=== PATIENT | female | born 1980 | race Caucasian/White ===

== ENCOUNTER 2017-05-30 22:23 | Emergency (ER) | payer MEDICAID ==
--- NOTE | 2017-05-30 22:43 | ED Physician Chart ---
Chief Complaint/HPI - Patient Information Date Seen:: 05/30/17 Time Seen:: 22:35 Chief Complaint:: Sorethroat for one day. History of Present Illness:: As above. No fever. Pt has transient N/V with vomitus consists of gastric content. No hematemesis. Last BM this morning that was normal in color/ consistency. No hematochezia or melena. No lightheadedness. No dyspnea or cough. ? voice change. Allergies:: Allergies Allergy/AdvReac Type Severity Reaction Status Date / Time No Known Allergies Allergy Verified 08/27/16 23:44 Vitals:: Vital Signs - 8 hr 05/30/17 22:35 Temp 98.6 F HR 103 RR 19 BP 143/96 O2 Sat % 95 Historian:: Patient Family MD/PCP:: Unknown LMP:: 05/23/17 Review:: Nurse's Note Reviewed Review of Systems - Review of Systems General/Constitutional: No fever, No chills, No weight loss, No weakness, No edema, No loss of appetite Skin: No skin lesions, No rash, No bruising Head: No headache, No light-headedness Eyes: No loss of vision, No pain, No diplopia ENT: No earache, No nasal drainage, Sore throat, No tinnitus Neck: No neck pain, No swelling, No thyromegaly, No stiffness, No mass noted Cardio Vascular: No chest pain, No palpitations, No edema Pulmonary: No SOB, No cough, No wheezing GI: Nausea, Vomiting (transient), No diarrhea, No pain G/U: No dysuria, No frequency, No hematuria [employer] 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 vaginal discharge, No abnormal vaginal bleed Musculoskeletal: No bone or joint pain, No back pain, No muscle pain Endocrine: No polyuria, No polydipsia Psychiatric: No prior psych history Hematopoietic: No bruising, No lymphadenopathy Allergic/Immuno: No urticaria, No angioedema Neurological: No syncope, No focal symptoms, No weakness, No headache, No dizziness, No confusion Past Medical History - Past Medical History Past Medical History: No significant medical hx Family History: None Social History: Non Smoker, Alcohol (occasional wine consumption), No Drug Use, Single, Lives With Parents, Employed Employment:: [employer] Surgical History: None Psychiatricy History: None Medication: Reviewed Family Medical History - Family Member Mother History Unknown: Yes Physical Exam - Physical Examination General/Constitutional: Awake, Well-developed, well-nourished, Alert, No distress, GCS 15, Non-toxic appearing, Ambulatory Other Gen/Cons comments:: Breathes comfortably, speaks clearly, interacts normally, and ambulates without difficulty. Head: Atraumatic Eyes: Lids, conjuctiva normal, PERRL, EOMI Skin: Nl inspection, No rash, No skin lesions, No ecchymosis, Well hydrated Other Skin comments:: Mild cervical lymphadenopathy noticed. ENMT: External ears, nose nl, TM canals nl, Nasal exam nl, Lips, teeth, gums nl Other ENMT comments:: Erythema with mild white exudate noticed in pharynx. No significant swelling noticed. Neck: Nontender, Full ROM w/o pain, No JVD, No nuchal rigidity, No mass, No stridor Respiratory: Nl effort/Exclusion, Clear to Auscultation, No Wheeze/Rhonchi/Rales Cardio Vascular: RRR (HR 90), No murmur, gallop, rubs GI: No tenderness/rebounding/guarding, No organomegaly, Normal BS's, Nondistended Extremities: No edema Neuro/Psych: Alert/oriented (oriented x 3), Judgement/insight normal, Mood normal, Normal gait, No focal deficits Labs/Radiology/EKG Results - Lab Results Results: Laboratory Tests 05/30/17 05/30/17 05/30/17 23:10 23:10 23:10 WBC 11.6 H RBC 4.20 Hgb 14.0 Hct 40.8 MCV 97.3 MCH 33.4 H MCHC Differential 34.4 RDW 14.0 Plt Count 248 MPV 7.5 Neutrophils % 80.7 H Lymphocytes % 14.3 L Monocytes % 4.7 Eosinophils % 0.3 Basophils % 0.0 PT 11.1 INR 1.07 PTT (Actin FS) 26.7 Sodium 132 L Potassium 3.5 Chloride 99 Carbon Dioxide 22.2 Anion Gap 14.3 BUN 11 Creatinine 0.7 Est GFR ( Amer) > 60.0 Est GFR (Non-Af Amer) > 60.0 BUN/Creatinine Ratio 15.7 Glucose 112 H Calcium 9.6 Urine Test 05/30/17 23:10 WBC RBC Hgb Hct MCV MCH MCHC Differential RDW Plt Count MPV Neutrophils % Lymphocytes % Monocytes % Eosinophils % Basophils % PT INR PTT (Actin FS) Sodium Potassium Chloride Carbon Dioxide Anion Gap BUN Creatinine Est GFR ( Amer) Est GFR (Non-Af Amer) BUN/Creatinine Ratio Glucose Calcium Urine Test NEGATIVE - Radiology Results Results: CT neck (soft tissue): Epiglottis and aryepiglottic folds appear within limits. No evidence of abscess on noncontrast imaging. No retopharyngeal soft tissue swelling noted. No evidence of mass or adenopathy on noncontrast imaging. No evidence of airway narrowing. Visualized apices are clear. Mild inferior maxillary sinus mucoperiosteal thickening. Official report per Dr. Davin Renae, radiologist. ED Septic Shock - . Is Septic Shock (SBP<90, OR Lactate>4 mmol\L) present?: No - <6hrs of presentation: Vital Signs: Vital Signs - 8 hr 05/30/17 22:35 Temp 98.6 F HR 103 RR 19 BP 143/96 O2 Sat % 95 Reassessment (Disposition) - Reassessment Reassessment:: 0045 Pt overall feels better. No dyspnea. Pt can speak clearly. Remaining lab results and CT report just became available. Lab and CT findings have been reviewed with pt. Pt requests to go home now and does not want further observation/management in hospital. Aftercare instructions have been given. Reassessment Condition:: Improved - Diagnosis Diagnosis:: Acute pharyngitis. Stable. - Aftercare/Follow up Instructions Aftercare/Follow-Up Instructions:: Refer to Discharge Instructions Notes:: Increase oral fluid. Oral hygiene instructions given. May use Cepacol lozenges as directed. Motrin 200 mg tab 3 tabs po q8h prn pain or fever. F/U with Dr. Poe or PCP of pt's choice in 1 day for recheck. Return to ER immediately if condition worsens or if any further questions/problems. Medication Prescribed:: Amoxicillin 500 mg tab one tab po q8h for 10 days. D-30 R-0 - Patient Disposition Discharge/Transfer:: Home Time:: 00:50 Condition at Disposition:: Stable, Improved ED Discharge Plan - Patient Disposition Admit/Discharge/Transfer: PT DISCHARGED HOME Condition at Disposition: Improved Instructions: Viral and Bacterial Pharyngitis, [id number] Additional Instructions: follow up with your primary medical doctor in 2-3 days if not feeling better take prescribed medications as ordered
[2017-05-30 23:23] LABS: % EOSINOPHILS 0.3 % (0.0-5.0); % LYMPHOCYTES 14.3 % (20.0-50.0); % MONOCYTES 4.7 % (2.0-10.0); % NEUTROPHILS 80.7 % (40.0-80.0); HEMATOCRIT 40.8 % (35.0-45.0); MEAN CELL VOLUME 97.3 fl (81-100); MEAN CORPUSCULAR HEMOGLOBIN 33.4 pg (27.0-31.0); MEAN CORPUSCULAR HGB CONC 34.4 pg (28.0-36.0); MEAN PLATELET VOLUME 7.5 fl; NEUTROPHILE ABSOLUTE 9.4 Th/cmm (1.8-8.0); PLATELET COUNT 248 Th/cmm (150-400); WHITE BLOOD COUNT 11.6 Th/cmm (4.8-10.8)
[2017-05-30 23:42] LABS: INR 1.07 (0.5-1.4); PROTHROMBIN TIME (TEST) 11.1 SECONDS (9.5-11.5)
[2017-05-30 23:43] LABS: ANION GAP 14.3 (7.0-16.0); BUN - UREA NITROGEN 11 mg/dL (7-25); BUN/CREATININE RATIO 15.7; CALCIUM SERUM 9.6 mg/dL (8.6-10.3); CARBON DIOXIDE 22.2 mEq/L (21.0-31.0); CHLORIDE 99 mEq/L (98-107); CREATININE - SERUM 0.7 mg/dL (0.6-1.2); GLUCOSE 112 mg/dL (70-105); POTASSIUM SERUM 3.5 mEq/L (3.5-5.1); SODIUM SERUM 132 mEq/L (136-145)
--- NOTE | 2017-05-31 11:52 | Diagnostic Imaging Report ---
CT scan cervical spine HISTORY: Pain Total DLP equals 470 CTDI equals 17.3 Axial sections were obtained through the cervical spine and the soft tissues of the neck. Additional sagittal and coronal reformatted images are provided. Mild degenerative spur formation noted about the endplates of C5. No acute abnormalities. No fractures. Alignment of the spine as. Is normal. Evaluation of the soft tissues is limited due to the absence of intravenous contrast. Several normal-sized lymph nodes scattered through the neck region. No other significant abnormal masses. No abnormality seen in the region of the epiglottis, valleculae, or perform sinuses. The prevertebral soft tissues appear normal. The submandibular glands appear normal. The parotid glands appear normal. Mild mucosal thickening noted in the maxillary sinuses. IMPRESSION: 1. No acute abnormalities 2. Mild mucosal thickening within the maxillary sinuses 3. 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
== END 2017-05-31 00:50 | disposition home or self-care (01) ==
LOC: ER 22:23
DX: J02.9 Acute pharyngitis, unspecified (principal)
CPT/HCPCS: 36415-UA; 70490-TC; 72125-TC; 80048-TC; 81025-TC; 85025-TC; 85610-TC; Z7610